=== PATIENT | male | born 1965 | race Caucasian/White ===

== ENCOUNTER 2021-12-09 10:44 | Inpatient (IN) | payer OTHER ==
[~2021-12-09] VITALS: Ht 165.1 cm; Wt 69.4 kg
[2021-12-09 11:54] LABS: BASOPHILS % (AUTO) 1.3 % (0.0-2.0); EOSINOPHILS % (AUTO) 7.1 % (1.0-6.0); HEMATOCRIT 46.7 % (41-53); HEMOGLOBIN 15.6 g/dL (13.5-17.5); LYMPHOCYTES # (AUTO) 1.7 K/uL (1.0-4.8); LYMPHOCYTES % (AUTO) 31.9 % (22.0-44.0); MEAN CORPUSCULAR HEMOGLOBIN 29.3 pg (26.0-34.0); MEAN CORPUSCULAR HGB CONC 33.4 G/dL (31.0-37.0); MEAN CORPUSCULAR VOLUME 88 fL (80-100); MONOCYTES # (AUTO) 0.5 K/uL (0.1-1.0); NEUTROPHILS # (AUTO) 2.8 K/uL (1.8-7.7); NEUTROPHILS % (AUTO) 50.7 % (40.0-70.0); PLATELET COUNT (AUTO) 235 K/uL (150-450); RED BLOOD CELL COUNT(AUTO) 5.34 MIL/uL (4.50-5.90); RED CELL DISTRIBUTION WIDTH 14.2 % (11.5-14.5)
[2021-12-09 11:57] LABS: COVID AG,FIA SOURCE NASOPHARYNGEAL
[2021-12-09 12:03] LABS: ANION GAP 8 mmol/L (8-16); CARBON DIOXIDE 24 mmol/L (22-29); CHLORIDE 105 mmol/L (98-107); CREATININE 0.97 mg/dL (0.60-1.30); GLUCOSE,RANDOM 82 mg/dL (70-110); SODIUM SERUM 137 mmol/L (136-145); UREA NITROGEN, BLOOD 19 mg/dL (7-18)
[2021-12-09 12:07] LABS: GLOMERULAR FILTR. RATE CALC > 60 mL/min (>60)
[2021-12-09 12:09] LABS: ALBUMIN 2.6 g/dL (3.4-5.0); BILIRUBIN,TOTAL 0.3 mg/dL (0.1-1.0); CALCIUM, TOTAL 5.8 mg/dL (8.8-10.5); TOTAL PROTEIN, SERUM 5.8 g/dL (6.4-8.2)
[2021-12-09 12:24] LABS: ALANINE AMINOTRANSFERASE 36 U/L (12-78); ALKALINE PHOSPHATASE 63 U/L (46-116); ASPARTATE AMINOTRANSFERASE 33 U/L (15-37)
[2021-12-09 13:57] LABS: AMPHET/METH SCREEN,URINE POSITIVE (NEGATIVE); BARBITURATE SCREEN, URINE NEGATIVE (NEGATIVE); BENZODIAZEPINES SCREEN,URINE NEGATIVE (NEGATIVE); CANNABINOID SCREEN,URINE NEGATIVE (NEGATIVE); COCAINE SCREEN,URINE NEGATIVE (NEGATIVE); METHADONE SCREEN, URINE NEGATIVE (NEGATIVE); OPIATE SCREEN,URINE NEGATIVE (NEGATIVE)
[2021-12-09 13:59] LABS: PHENCYCLIDINE SCREEN,URINE NEGATIVE (NEGATIVE)
[2021-12-09] MEDS ORDERED: IPRATROPIUM BROMIDE 0.5 MG/2.5 ML NEB SOLUTION NEB PRN (14:45)
[2021-12-09] MEDS ORDERED: ALBUTEROL SULFATE 2.5 MG/0.5 ML NEB SOLUTION NEB PRN (14:45)
[2021-12-09] MEDS ORDERED: BISACODYL 10 MG RECTAL RECTAL SUPPOSITORY PR PRN (14:45)
[2021-12-09] MEDS ORDERED: ONDANSETRON HCL 4 MG/2 ML VIAL IVP PRN (14:45)
[2021-12-09] MEDS ORDERED: DOCUSATE SODIUM 100 MG CAPSULE PO PRN (14:45)
[2021-12-09] MEDS: THIAMINE 100 MG TABLET PO SCH (14:59)
[2021-12-09] MEDS: MULTIVITAMINS, THERAPEUTIC TABLET PO SCH (14:59)
[2021-12-09] MEDS: FOLIC ACID 1 MG TABLET PO SCH (14:59)
[2021-12-09] MEDS ORDERED: CALCIUM GLUCONATE 100 MG/ML 10 ML IVP ONE (15:00)
[2021-12-09 16:11] LABS: FREE T4 (FREE THYROXINE) 0.98 ng/dL (0.76-1.46); THYROID STIMULATING HORMONE 1.56 uIU/mL (0.36-3.74)
[2021-12-09] MEDS ORDERED: NITROGLYCERIN 2% (1 GM=INCH) PACKET TP ONE (16:15)
[2021-12-09] MEDS ORDERED: ASPIRIN 325 MG TABLET PO ONE (16:15)
[2021-12-09] MEDS ORDERED: SODIUM CHLORIDE 0.9% 1,000 ML IV ONE (16:15)
[2021-12-09 17:00] LABS: CREATINE KINASE, TOTAL ONLY 148 U/L (39-308); LIPASE 98 U/L (73-393)
[2021-12-09 17:08] LABS: ALBUMIN 2.4 g/dL (3.4-5.0); CALCIUM, TOTAL 8.8 mg/dL (8.8-10.5)
[2021-12-09] MEDS: AmLODIPine BESYLATE 5 MG TABLET PO SCH (17:19)
[2021-12-09 18:38] VITALS: BP 136/89
[2021-12-09 19:46] VITALS: BP 134/75
[2021-12-09] MEDS: ACETAMINOPHEN 325 MG TABLET PO PRN (21:27)
[2021-12-10] VITALS (7 sets, daily range): BP systolic 118–155; BP diastolic 68–106
[2021-12-10 07:23] LABS: BASOPHILS % (AUTO) 1.4 % (0.0-2.0); EOSINOPHILS % (AUTO) 7.2 % (1.0-6.0); HEMATOCRIT 46.6 % (41-53); HEMOGLOBIN 15.7 g/dL (13.5-17.5); LYMPHOCYTES # (AUTO) 1.9 K/uL (1.0-4.8); LYMPHOCYTES % (AUTO) 33.7 % (22.0-44.0); MEAN CORPUSCULAR HEMOGLOBIN 29.5 pg (26.0-34.0); MEAN CORPUSCULAR HGB CONC 33.7 G/dL (31.0-37.0); MEAN CORPUSCULAR VOLUME 87 fL (80-100); MONOCYTES # (AUTO) 0.5 K/uL (0.1-1.0); MONOCYTES % (AUTO) 8.9 % (2.0-9.0); NEUTROPHILS # (AUTO) 2.8 K/uL (1.8-7.7); NEUTROPHILS % (AUTO) 48.8 % (40.0-70.0); PLATELET COUNT (AUTO) 231 K/uL (150-450); RED BLOOD CELL COUNT(AUTO) 5.33 MIL/uL (4.50-5.90)
[2021-12-10 07:47] LABS: ALANINE AMINOTRANSFERASE 28 U/L (12-78); ALBUMIN 2.5 g/dL (3.4-5.0); ALKALINE PHOSPHATASE 57 U/L (46-116); ANION GAP 4 mmol/L (8-16); ASPARTATE AMINOTRANSFERASE 28 U/L (15-37); BILIRUBIN,TOTAL 0.4 mg/dL (0.1-1.0); CALCIUM, TOTAL 8.5 mg/dL (8.8-10.5); CARBON DIOXIDE 27 mmol/L (22-29); CHLORIDE 107 mmol/L (98-107); CREATININE 0.91 mg/dL (0.60-1.30); GLUCOSE,RANDOM 93 mg/dL (70-110); POTASSIUM 4.2 mmol/L (3.5-5.1); SODIUM SERUM 138 mmol/L (136-145); TOTAL PROTEIN, SERUM 5.6 g/dL (6.4-8.2); UREA NITROGEN, BLOOD 14 mg/dL (7-18)
[2021-12-10 07:48] LABS: GLOMERULAR FILTR. RATE CALC > 60 mL/min (>60)
[2021-12-10] MEDS: MULTIVITAMINS, THERAPEUTIC TABLET PO SCH (08:36)
[2021-12-10] MEDS: PANTOPRAZOLE SODIUM 40 MG DR TABLET PO SCH (08:37)
[2021-12-10] MEDS: AmLODIPine BESYLATE 5 MG TABLET PO SCH (08:37)
[2021-12-10] MEDS: THIAMINE 100 MG TABLET PO SCH (08:37)
[2021-12-10] MEDS: FOLIC ACID 1 MG TABLET PO SCH (08:37)
[2021-12-10] MEDS: LORazepam 2 MG/ML VIAL IVP PRN (19:46)
[2021-12-10] MEDS: ACETAMINOPHEN 325 MG TABLET PO PRN (19:46)
[2021-12-11 04:52] VITALS: BP 149/96
[2021-12-11 07:36] LABS: BASOPHILS % (AUTO) 1.5 % (0.0-2.0); EOSINOPHILS % (AUTO) 3.8 % (1.0-6.0); HEMATOCRIT 48.4 % (41-53); HEMOGLOBIN 16.5 g/dL (13.5-17.5); LYMPHOCYTES # (AUTO) 1.6 K/uL (1.0-4.8); LYMPHOCYTES % (AUTO) 25.5 % (22.0-44.0); MEAN CORPUSCULAR HEMOGLOBIN 29.6 pg (26.0-34.0); MEAN CORPUSCULAR HGB CONC 34.1 G/dL (31.0-37.0); MEAN CORPUSCULAR VOLUME 87 fL (80-100); MONOCYTES # (AUTO) 0.4 K/uL (0.1-1.0); MONOCYTES % (AUTO) 6.7 % (2.0-9.0); NEUTROPHILS # (AUTO) 3.9 K/uL (1.8-7.7); NEUTROPHILS % (AUTO) 62.5 % (40.0-70.0); PLATELET COUNT (AUTO) 255 K/uL (150-450); RED BLOOD CELL COUNT(AUTO) 5.58 MIL/uL (4.50-5.90); RED CELL DISTRIBUTION WIDTH 13.7 % (11.5-14.5)
[2021-12-11 07:58] LABS: ALANINE AMINOTRANSFERASE 30 U/L (12-78); ALBUMIN 2.8 g/dL (3.4-5.0); ALKALINE PHOSPHATASE 58 U/L (46-116); ANION GAP 3 mmol/L (8-16); ASPARTATE AMINOTRANSFERASE 24 U/L (15-37); BILIRUBIN,TOTAL 0.4 mg/dL (0.1-1.0); CALCIUM, TOTAL 8.5 mg/dL (8.8-10.5); CARBON DIOXIDE 29 mmol/L (22-29); CHLORIDE 106 mmol/L (98-107); CREATININE 0.94 mg/dL (0.60-1.30); GLUCOSE,RANDOM 102 mg/dL (70-110); POTASSIUM 4.1 mmol/L (3.5-5.1); SODIUM SERUM 138 mmol/L (136-145); UREA NITROGEN, BLOOD 17 mg/dL (7-18)
[2021-12-11 08:03] LABS: GLOMERULAR FILTR. RATE CALC > 60 mL/min (>60)
[2021-12-11 08:16] VITALS: BP 159/98
[2021-12-11] MEDS: PANTOPRAZOLE SODIUM 40 MG DR TABLET PO SCH (08:20)
[2021-12-11] MEDS: MULTIVITAMINS, THERAPEUTIC TABLET PO SCH (08:20)
[2021-12-11] MEDS: THIAMINE 100 MG TABLET PO SCH (08:20)
[2021-12-11] MEDS: LOSARTAN POTASSIUM 25 MG TABLET PO SCH (08:20)
[2021-12-11] MEDS: FOLIC ACID 1 MG TABLET PO SCH (08:20)
[2021-12-11 11:54] VITALS: BP 130/75
[2021-12-11] MEDS: ACETAMINOPHEN 325 MG TABLET PO PRN ×2 (13:07→20:28)
[2021-12-11 16:08] VITALS: BP 142/69
[2021-12-11 20:04] VITALS: BP 154/75
[2021-12-11] MEDS: MELATONIN 3 MG TABLET PO PRN (22:30)
[2021-12-12] MEDS: LORazepam 2 MG/ML VIAL IVP PRN (00:01)
[2021-12-12 00:09] VITALS: BP 165/93
[2021-12-12 04:44] VITALS: BP 144/96
[2021-12-12] MEDS: THIAMINE 100 MG TABLET PO SCH (09:08)
[2021-12-12] MEDS: FOLIC ACID 1 MG TABLET PO SCH (09:08)
[2021-12-12] MEDS: LOSARTAN POTASSIUM 25 MG TABLET PO SCH (09:08)
[2021-12-12] MEDS: MULTIVITAMINS, THERAPEUTIC TABLET PO SCH (09:08)
[2021-12-12] MEDS: PANTOPRAZOLE SODIUM 40 MG DR TABLET PO SCH (09:08)
[2021-12-12 09:14] VITALS: BP 137/93
[2021-12-12 11:47] VITALS: BP 128/70
[2021-12-12 15:49] VITALS: BP 114/73
[2021-12-12 19:15] VITALS: BP 148/94
[2021-12-12] MEDS ORDERED: LOSA-381 PO (19:53)
[2021-12-12] MEDS ORDERED: PANT-31 PO (19:54)
[2021-12-12] MEDS ORDERED: MULT-711 PO (19:54)
[2021-12-12] MEDS ORDERED: THIA100T80 PO (19:55)
[2021-12-13] MEDS: MELATONIN 3 MG TABLET PO PRN (00:43)
[2021-12-13] MEDS: ACETAMINOPHEN 325 MG TABLET PO PRN (00:44)
[2021-12-13 04:35] VITALS: BP 153/79
[2021-12-13] MEDS: FOLIC ACID 1 MG TABLET PO SCH (08:28)
[2021-12-13] MEDS: LOSARTAN POTASSIUM 25 MG TABLET PO SCH (08:28)
[2021-12-13] MEDS: MULTIVITAMINS, THERAPEUTIC TABLET PO SCH (08:28)
[2021-12-13] MEDS: THIAMINE 100 MG TABLET PO SCH (08:28)
[2021-12-13] MEDS: PANTOPRAZOLE SODIUM 40 MG DR TABLET PO SCH (08:28)
[2021-12-13 08:37] VITALS: BP 160/76
[2021-12-13] MEDS ORDERED: FOLI-130 PO (10:34)
[2021-12-13] MEDS ORDERED: MELA3TAB89 PO (10:34)
== END 2021-12-13 15:56 | DRG 640 ==
LOC: EMS 10:44 → 6S 14:46 → 5S 16:59 → 6S 12-12 18:00
PROVIDERS: ADMIT Internal Medicine; ATTEND Internal Medicine
DX: E83.51 Hypocalcemia (principal); E43 Unspecified severe protein-calorie malnutrition; F15.23 Other stimulant dependence with withdrawal; I42.7 Cardiomyopathy due to drug and external agent; I50.22 Chronic systolic (congestive) heart failure; F19.139 Other psychoactive substance abuse with withdrawal, unspecified; F10.10 Alcohol abuse, uncomplicated; R07.89 Other chest pain; Z20.822 Contact with and (suspected) exposure to COVID-19; I11.0 Hypertensive heart disease with heart failure; Z87.891 Personal history of nicotine dependence; Z79.899 Other long term (current) drug therapy; Z68.25 Body mass index [BMI] 25.0-25.9, adult
CPT/HCPCS: 71045; 80053; 82040; 82310; 82330; 82550; 83690; 83970; 84439; 84443; 84484; 85025; 93005; 93306; 99291; G0480; J0610; J2060; J7030; 36415-L1; 36415-TC